=== PATIENT | female | born 1970 | race Two or more races ===

== ENCOUNTER 2023-05-19 20:59 | Emergency (ER) | payer OTHER ==
[~2023-05-19] VITALS: Ht 154.9 cm; Wt 68.0 kg
[~2023-05-19 20:59] MED LIST: ACET-784 PO; BACTDSB PO
[2023-05-19 21:21] VITALS: BP 160/80; PULSE 69; RESP 17; TEMP 98.3
== END 2023-05-19 23:05 | disposition left against medical advice (07) ==
LOC: EMS 21:00
DX: R10.9 Unspecified abdominal pain (principal); R11.10 Vomiting, unspecified; R19.7 Diarrhea, unspecified; Z53.21 Procedure and treatment not carried out due to patient leaving prior to being seen by health care provider
CPT/HCPCS: 99281; Z7502